=== PATIENT | male | born 1970 | race Caucasian/White ===

== ENCOUNTER 2017-08-20 15:13 | Emergency (ER) | payer OTHER ==
[~2017-08-20] VITALS: Ht 177.8 cm; Wt 111.4 kg
[~2017-08-20 15:13] MED LIST: ALAVERT10 M1 PO; AMLODIPINE-VAL1 EACH PO; BENTYL20 MG PO; EXCEDRIN EXTRA1 EACH PO; FLONASE ALLERG9.9 ML BOTH NARES; FLUOXETINE HCL20 M1 PO; OMEPRAZOLE40 M1 PO; PERCOCET 5/31 TABLET PO; ZOFRAN ODT4 MG PO
[2017-08-20 16:32] LABS: BASOPHIL (%) 0.3 % (0-1); BASOPHIL COUNT 0.1 K/uL (0-0.1); EOSINOPHIL (%) 2.2 % (0-5); EOSINOPHIL COUNT 0.4 K/uL (0-0.3); HEMATOCRIT 46.2 % (38.0-50.0); HEMOGLOBIN 15.9 G/DL (12.5-16.6); IMMATURE GRANULOCYTE (%) 0.5 % (0.0-0.7); LYMPHOCYTE (%) 12.8 % (15-42); LYMPHOCYTE COUNT 2.4 K/uL (1.0-2.8); MCH 30.6 PG (29.0-34.0); MCHC 34.4 G/DL (30.0-36.0); MONOCYTE (%) 5.1 % (3-12); NEUTROPHIL (%) 79.1 % (45-76); NEUTROPHIL COUNT 14.9 K/uL (1.8-6.4); PLATELET COUNT 270 K/uL (156-360); RBC DIS.WIDTH-CV 12.5 % (11.8-14.6); RBC DIS.WIDTH-SD 41.2 % (39-53); RED BLOOD COUNT 5.19 M/uL (4.00-5.50); WHITE BLOOD COUNT 18.9 K/uL (4.1-10.2)
[2017-08-20 16:43] LABS: CHLORIDE 104 mEq/L (99-109); POTASSIUM 3.9 mEq/L (3.7-5.4); SODIUM 135 mEq/L (136-147)
[2017-08-20 16:45] LABS: GLUCOSE 108 mg/dL (70-99)
[2017-08-20 16:49] LABS: GFR ESTIMATE (CALCULATED) > 59 mL/min/ (58.99-99999)
[2017-08-20 16:50] LABS: UREA NITROGEN (BUN) 19 mg/dL (9-23)
[2017-08-20 16:52] LABS: TROP-I INTERPRETATION NEGATIVE; TROPONIN-I < 0.01 ng/mL (0.0-0.30)
[2017-08-20 17:11] LABS: TOTAL PROTEIN 6.8 g/dL (6.4-8.3)
[2017-08-20 17:12] LABS: TOTAL BILIRUBIN 0.7 mg/dL (0.0-1.0)
[2017-08-20 17:13] LABS: ALKALINE PHOSPHATASE 99 IU/L (3-129)
[2017-08-20 17:16] LABS: ALT (GPT) 20 IU/L (3-49); AST (GOT) 18 IU/L (2-34); DIRECT BILIRUBIN 0.3 mg/dL (0.0-0.3)
[2017-08-20 17:17] LABS: LIPASE 27 U/L (1.0-51.0)
[2017-08-20 18:21] LABS: APPEARANCE CLEAR ((CLEAR)); BILIRUBIN NEGATIVE; BLOOD NEGATIVE; COLOR YELLOW ((YELLOW)); GLUCOSE (STRIP) NEGATIVE; KETONES NEGATIVE; LEUKOCYTES NEGATIVE; NITRITE NEGATIVE; PROTEIN (STRIP) NEGATIVE; SPECIFIC GRAVITY 1.019 (1.000-1.030); UCUL ADDED? NO
[2017-08-20 18:52] LABS: D-DIMER ELISA < 150.00 ng/mLDDU (<230)
[2017-08-20 19:04] LABS: TROP-I INTERPRETATION NEGATIVE; TROPONIN-I < 0.01 ng/mL (0.0-0.30)
[2017-08-20 21:42] LABS: TROP-I INTERPRETATION NEGATIVE; TROPONIN-I < 0.01 ng/mL (0.0-0.30)
[2017-08-20 22:22] VITALS: BP 136/86
== END 2017-08-20 22:23 | disposition home or self-care (01) ==
LOC: EME 15:13
PROVIDERS: Emergency Medicine
DX: R07.9 Chest pain, unspecified (principal); K21.9 Gastro-esophageal reflux disease without esophagitis; I10 Essential (primary) hypertension; F17.200 Nicotine dependence, unspecified, uncomplicated
CPT/HCPCS: 71046; 80048; 80076; 81003; 83690; 84484; 85025; 85379; 87502; 93005; 99281; 99285; J7030